=== PATIENT | female | born 1945 | race Caucasian/White ===

== ENCOUNTER 2020-09-17 08:26 | Outpatient (CLI) | payer OTHER, BC ==
[2020-09-17] MEDS ORDERED: Iopamidol 370 76% 100 ML VIAL ONE (09:26)
--- NOTE | 2020-09-17 09:40 | CT ---
CT ANGIOGRAM THORAX WITH IV CONTRAST AND 3-D RECONSTRUCTIONS CLINICAL INDICATION: Atrial fibrillation post watchman device placement. COMPARISON: CT thorax on 03/12/2015 FINDINGS: Pulmonary arteries: No filling defects in the central or proximal segmental pulmonary arteries to sug gest pulmonary embolus at this level. More distal segmental and subsegmental pulmonary arteries are not adequately opacified. Aorta: Borderline aneurysmal dilatation of the ascending thoracic aorta which measures approximately 4.5 cm in diameter. Descending thoracic aorta is normal in caliber measuring 2.6 cm in diameter. Minimal vascular calcifications are seen in the thoracic aorta. Lungs: Calcified granuloma is seen in the left upper lobe also seen on prior study. Stable pleural-ba sed nodular density anterior aspect right middle lobe is again seen which may represent a small intrapleural lymph node. No discrete noncalcified pulmonary nodule, mass, or pleural effusion is seen . Bibasilar atelectasis is present. Mediastinum: The heart is mildly enlarged. There postoperative changes related to placement of a watc hman device within the left atrial appendage. There is dense contrast seen in the left atrium which is not appreciated in the left atrial appendage. Findings are most suggestive of occlusion secondary to watchman device. However, there is suggestion of slight enhancement in the region of the watchman device, this may be attributable to motion and the watchman device as an accurate attenuatio n coefficient is difficult to determine on this exam. However, just distal to the watchman device the attenuation coefficient is suggestive of occlusion.. Calcified left hilar lymph nodes are again seen. Thyroid gland: There is mild asymmetry in the size of the thyroid gland with left lobe larger in size . The right. Hallux is stable since 2015 Osseous structures: No suspicious lytic or sclerotic osseous lesion. Chest wall: No abnormality visualized. Upper abdomen: Calcified granuloma is seen in the right hepatic lobe. IMPRESSION: 1. Left atrial occlusion device (Watchman device) noted in place. There is dense contrast seen within the left atrium which is not appreciated in the left atrial appendage. While there is suggestion of subtle enhancement within the watchman device, this may be artifactual secondary to the watchman d evice resulting in slightly elevated attenuation coefficient. Left atrial appendage just distal to the Watchman device demonstrates an attenuation coefficient compatible with occlusion of the left atr ial appendage. 2. Mild cardiomegaly. 3. Mild aneurysmal dilatation ascending thoracic aorta measuring 4.5 cm.
== END 2020-09-17 08:27 | disposition home or self-care (01) ==
LOC: BICCT 08:26
PROVIDERS: ATTEND Internal Medicine Cardiovascular Disease
DX: I48.91 Unspecified atrial fibrillation (principal); R06.02 Shortness of breath; I71.2 Thoracic aortic aneurysm, without rupture; I51.7 Cardiomegaly; Z95.818 Presence of other cardiac implants and grafts
CPT/HCPCS: 71275; 82565; Q9967

== ENCOUNTER 2024-11-28 07:30 | Day surgery (SDC) | payer MEDICARE ==
[2024-11-28 07:58] LABS: #Basophils Less than 0.03 10x3/uL (0.0-0.2); %Basophils 0.2 % (0.0-1.0); %Eosinophils 4.5 % (0.0-10.0); %Monocytes 10.9 % (0.0-10.0); %Neutrophils 66.2 % (42.0-75.0); Hematocrit 40.3 % (36.0-47.0); Hemoglobin 13.6 g/dL (12.0-16.0); Mean Corpuscular HGB CONC 33.7 g/dL (32.0-36.0); Mean Corpuscular Hemoglobin 31.5 pg (27.0-31.0); Mean Corpuscular Volume 93.3 fL (78.0-98.0); Mean Platelet Volume 8.6 fL (7.4-10.4); Platelet Count 167 10x3/uL (130-400); RBC Distribution Width 13.7 % (11.5-14.5); Red Blood Cell (RBC) Count 4.32 mill/uL (4.20-5.40)
[2024-11-28 08:18] LABS: INR-International Normal Ratio 1.1; Prothrombin Time 13.7 sec (12.0-14.7)
[2024-11-28 08:19] LABS: PTT 32.5 sec (22.9-36.1)
[2024-11-28] MEDS ORDERED: fentaNYL 50 mcg/mL 1 mL Vial ONE (08:24)
[2024-11-28] MEDS ORDERED: Midazolam HCl 2 mg/2 ml Vial ONE (08:25)
[2024-11-28] MEDS ORDERED: Sodium Bicarbonate 2.5 MEQ/5 ML SDV ONE (08:25)
[2024-11-28] MEDS ORDERED: Lidocaine 1% w/Epinephrine 1:100K 20 ML VIAL ONE (08:25)
== END 2024-11-28 13:26 | disposition home or self-care (01) ==
LOC: ULT 07:30
PROVIDERS: ATTEND Internal Medicine
PROC: 0FB23ZX Excision of Left Lobe Liver, Percutaneous Approach, Diagnostic (ICD-10-PCS; principal; 2024-11-28)
DX: C22.7 Other specified carcinomas of liver (principal); K76.9 Liver disease, unspecified; K21.9 Gastro-esophageal reflux disease without esophagitis; M19.90 Unspecified osteoarthritis, unspecified site; I48.91 Unspecified atrial fibrillation; I11.0 Hypertensive heart disease with heart failure; I50.9 Heart failure, unspecified; Z79.82 Long term (current) use of aspirin; Z88.2 Allergy status to sulfonamides; Z88.0 Allergy status to penicillin; Z79.899 Other long term (current) drug therapy
CPT/HCPCS: 47000; 76942; 85025; 85610; 85730; 88333; 88334; J2250; J3010; 88307; 88341; 88342; 99152; 99153